=== PATIENT | male | born 2000 | race Caucasian/White ===

== ENCOUNTER 2022-06-25 04:42 | Emergency (ER) | payer OTHER | END 2022-06-25 06:10 | disposition home or self-care (01) | LOC: ER1 04:42 | DX: S92.421A Displaced fracture of distal phalanx of right great toe, initial encounter for closed fracture (principal); S90.211A Contusion of right great toe with damage to nail, initial encounter; I10 Essential (primary) hypertension; W20.8XXA Other cause of strike by thrown, projected or falling object, initial encounter; Y93.43 Activity, gymnastics | CPT/HCPCS: 11740; 73660; 99283 ==